=== PATIENT | female | born 1995 | race African-American/Black ===

== ENCOUNTER 2018-03-16 17:15 | Observation (INO) | payer SELFPAY ==
[~2018-03-16 17:15] MED LIST: Dexamethasone 20 MG/5 ML VIAL ONE; ISOVUE-370 76%-LOCM 1 ML ONE; Lidocaine 1% PF 5 ML VIAL ONE; Ondansetron HCl/PF 4 MG/2 ML Vial ONE; PROPOFOL 200 MG/20 ML VIAL ONE
[2018-03-16] MEDS ORDERED: Ketorolac Tromethamine 30 MG/ML VIAL ONE (17:28)
[2018-03-16 17:39] LABS: #Eosinphils 0.1 thou/uL (0.0-0.7); #Lymphocytes 1.3 thou/uL (1.20-3.40); #Monocytes 0.5 thou/uL (0.11-0.59); #Neutrophils 6.3 thou/uL (1.40-6.50); %Basophils 0.3 % (0.0-1.0); %Eosinophils 0.9 % (0.0-10.0); %Neutrophils 76.8 % (42.0-75.0); Hemoglobin 13.1 g/dL (12.0-16.0); Mean Corpuscular HGB CONC 33.9 g/dL (32.0-36.0); Mean Corpuscular Hemoglobin 31.3 pg (27.0-31.0); Mean Corpuscular Volume 92.4 fl (81.0-99.0); Mean Platelet Volume 9.5 fL (7.4-10.4); Platelet Count 220 thou/uL (130-400); RBC Distribution Width 11.7 % (11.5-14.5); White Blood Cell (WBC) Count 8.2 thou/uL (4.8-10.8)
[2018-03-16] MEDS ORDERED: Adacel (T-DAP) 0.5 ML VIAL ONE (17:39)
[2018-03-16] MEDS ORDERED: CEFAZOLIN 1 GM VIAL ONE ×2 (17:39→19:18)
[2018-03-16 17:52] LABS: ALT (SGPT) 19 U/L (8-55); AST (SGOT) 18 U/L (5-34); Albumin 4.1 g/dL (3.5-5.0); Alkaline Phosphatase 68 U/L (40-150); Anion Gap 11 mmol/L (10-20); BUN (Urea Nitrogen) 14 mg/dL (7.0-18.7); Bilirubin, Total 0.4 mg/dL (0.2-1.2); Calc. Creatinine Clearance 0 mL/min (70-130); Calcium 9.1 mg/dL (7.8-10.44); Carbon Dioxide 24 mmol/L (22-29); Chloride 104 mmol/L (98-107); Estimated GFR-MDRD Greater than 90; Globulin 3.6 g/dL (2.4-3.5); Glucose 97 mg/dL (70-105); Protein, Total 7.7 g/dL (6.0-8.3); Sodium 135 mmol/L (136-145)
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
[2018-03-16] MEDS ORDERED: Lidocaine 1% PF 5 ML VIAL ONE (18:42)
[2018-03-16 19:15] LABS: Bilirubin Negative (Negative); Blood, Urine Negative (Negative); Clarity CLEAR (Clear); Glucose, Urine (Dipstick) Negative (Negative); Leukocyte Negative (Negative); Nitrite Negative (Negative); Protein, Urine (Dipstick) Negative (Neg-Trace)
[2018-03-16 19:18] LABS: Specific Gravity, Urine 1.052 (1.002-1.036)
[2018-03-16] MEDS ORDERED: Fentanyl 100 MCG/2 ML VIAL ONE (19:35)
[2018-03-16] MEDS ORDERED: Bupivacaine HCl 0.5%/Epinephrine 1:200,000/PF 30 ml Vial ONE (20:25)
[2018-03-16] MEDS ORDERED: Bupivacaine/Epinephrine 0.25% 30 ML VIAL ONE (20:30)
[2018-03-16] MEDS ORDERED: Bacitracin Zinc Ointment 30 gm TUBE ONE (20:39)
[2018-03-16] MEDS ORDERED: Meperidine HCl/PF 25 MG/ML VIAL ONE (20:57)
[2018-03-16] MEDS ORDERED: Morphine Sulfate 2 MG/ML SYRINGE SLOW IVP PRN (20:59)
[2018-03-16] MEDS ORDERED: Promethazine HCl 25 MG/ML VIAL IM PRN (20:59)
[2018-03-16] MEDS ORDERED: Promethazine HCl 25 MG/ML VIAL SLOW IVP PRN (20:59)
[2018-03-16] MEDS ORDERED: Ondansetron HCl/PF 4 MG/2 ML Vial IVP PRN (20:59)
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
[2018-03-16] MEDS ORDERED: traMADol HCl 50 MG TAB PO PRN (22:19)
[2018-03-16] MEDS ORDERED: Dextrose 5% in Water 1,000 ML IV PRN (22:19)
[2018-03-16] MEDS ORDERED: Dextrose 50% Abboject 50 ML SYRINGE SLOW IVP PRN (22:19)
[2018-03-16] MEDS ORDERED: Ibuprofen 600 MG TAB PO SCH (22:30)
[2018-03-16] MEDS ORDERED: Famotidine 20 MG TAB PO SCH (22:30)
[2018-03-16 22:37] VITALS: BMI 28.9
[2018-03-17] MEDS: Acetaminophen 500 MG TAB PO SCH ×3 (00:19→11:12)
[2018-03-17] MEDS: Sodium Chloride 0.9% 1,000 ML IV SCH ×2 (00:44→06:31)
--- NOTE | 2018-03-17 03:14 | OP ---
PREOPERATIVE DIAGNOSIS: Complex contaminated laceration of the right antecubital fossa and forearm. POSTOPERATIVE DIAGNOSIS: Complex contaminated laceration of the right antecubital fossa and forearm. PROCEDURE: Irrigation and debridement with removal of skin, subcutaneous tissue, and muscle; complex closure of laceration measuring 12 cm long and 6 cm wide. NARRATIVE REPORT: The patient was taken to the operating where general anesthesia was induced. Righ t arm was prepped and draped in the usual sterile fashion. Tourniquet was applied, but was not used. I debrided the skin, subcutaneous tissue, and some muscle tissue sharply with a 10 blade knife to r emove any gross contamination. Obtained hemostasis as needed. I used pulsatile lavage irrigation fo r thoroughly clean the wound. Unfortunately, this was over the antecubital fossa, so I was able to f smith the elbow and advanced tissues deep in 2 layers and then with 0 Vicryl and 2-0 Vicryl and then cl osed with 2-0 Vicryl for the skin. This facilitated closure of this complex laceration. Sterile cara ssings applied. The patient was placed in a long-arm splint. There were no complications.
[2018-03-17] MEDS ORDERED: Ondansetron HCl/PF 4 MG/2 ML Vial IVP PRN (03:22)
[2018-03-17] MEDS: Ibuprofen 600 MG TAB PO SCH ×2 (06:31→15:14)
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
[2018-03-17] MEDS ORDERED: Acetaminophen/Codeine 30-300mg Tablet PO PRN ×2 (08:56)
[2018-03-17] MEDS ORDERED: Famotidine 20 MG TAB PO SCH (09:00)
[2018-03-17 16:08] VITALS: BP 116/67; TEMP 98.8
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
== END 2018-03-17 16:05 | disposition home or self-care (01) ==
LOC: ERS 17:15 → SURG B 19:57
PROVIDERS: ADMIT Surgery; ATTEND Surgery
PROC: 0HQDXZZ Repair Right Lower Arm Skin, External Approach (ICD-10-PCS; principal; 2018-03-16)
DX: S51.811A Laceration without foreign body of right forearm, initial encounter (principal); V86.69XA Passenger of other special all-terrain or other off-road motor vehicle injured in nontraffic accident, initial encounter
CPT/HCPCS: 70450; 71045; 72125; 80053; 81003; 85025; 90471; 90715; 96361; 96365; 96366; 96375; 96376; G0378; G0390; J0670; J0690; J1100; J1885; J2001; J2175; J2270; J2405; J2704; J3010